=== PATIENT | female | born 1980 | race Caucasian/White ===

== ENCOUNTER 2019-10-31 10:20 | Emergency (ER) | payer OTHER ==
[~2019-10-31] VITALS: Ht 180.3 cm; Wt 108.9 kg
[2019-10-31 11:27] VITALS: BP 118/90
== END 2019-10-31 11:40 | disposition home or self-care (01) ==
LOC: M.ERS 10:20
DX: S91.114A Laceration without foreign body of right lesser toe(s) without damage to nail, initial encounter (principal); S80.11XA Contusion of right lower leg, initial encounter; F17.210 Nicotine dependence, cigarettes, uncomplicated; W10.8XXA Fall (on) (from) other stairs and steps, initial encounter; Y93.89 Activity, other specified; Y92.89 Other specified places as the place of occurrence of the external cause; Y99.8 Other external cause status

== ENCOUNTER 2019-11-10 11:28 | Emergency (ER) | payer OTHER ==
[~2019-11-10] VITALS: Ht 180.3 cm; Wt 104.3 kg
[2019-11-10 12:26] VITALS: BP 124/82
== END 2019-11-10 12:39 | disposition home or self-care (01) ==
LOC: M.ERS 11:28
DX: S91.114D Laceration without foreign body of right lesser toe(s) without damage to nail, subsequent encounter (principal); Z88.2 Allergy status to sulfonamides; V89.2XXD Person injured in unspecified motor-vehicle accident, traffic, subsequent encounter

== ENCOUNTER 2019-11-17 12:16 | Emergency (ER) | payer OTHER ==
[~2019-11-17] VITALS: Ht 180.3 cm; Wt 104.3 kg
[2019-11-17 12:58] VITALS: BP 140/88
== END 2019-11-17 12:58 | disposition home or self-care (01) ==
LOC: M.ERS 12:16
DX: S91.311D Laceration without foreign body, right foot, subsequent encounter (principal); F17.210 Nicotine dependence, cigarettes, uncomplicated; Z88.2 Allergy status to sulfonamides; X58.XXXD Exposure to other specified factors, subsequent encounter

== ENCOUNTER 2020-07-12 19:23 | Emergency (ER) | payer OTHER ==
[~2020-07-12] VITALS: Ht 180.3 cm; Wt 108.9 kg
[2020-07-12] MEDS ORDERED: AMOXICILLIN500 M1 PO (20:18)
[2020-07-12] MEDS ORDERED: NORCO5 PO (20:18)
[2020-07-12] MEDS ORDERED: IBUPROFEN 800800 M1 PO (20:18)
[2020-07-12 20:30] VITALS: BP 132/79
== END 2020-07-12 20:30 | disposition home or self-care (01) ==
LOC: M.ERS 19:23
DX: H60.91 Unspecified otitis externa, right ear (principal); Z88.2 Allergy status to sulfonamides